=== PATIENT | female | born 1995 | race Two or more races ===

== ENCOUNTER 2019-04-23 00:05 | Emergency (ER) | payer OTHER ==
[~2019-04-23] VITALS: Ht 167.6 cm; Wt 47.6 kg
== END 2019-04-23 07:09 | disposition home or self-care (01) ==
LOC: ER 00:05
DX: J11.1 Influenza due to unidentified influenza virus with other respiratory manifestations (principal)

== ENCOUNTER 2025-02-14 08:51 | Outpatient (CLI) | payer OTHER | END 2025-02-14 08:52 | disposition home or self-care (01) | LOC: PRENATAL 08:51 | PROVIDERS: ATTEND Obstetrics & Gynecology Maternal & Fetal Medicine | DX: O44.02 Complete placenta previa NOS or without hemorrhage, second trimester (principal); Z3A.21 21 weeks gestation of pregnancy ==